=== PATIENT | male | born 2000 | race Caucasian/White ===

== ENCOUNTER 2021-07-10 17:31 | Emergency (ER) | payer SELFPAY ==
[2021-07-10 17:33] VITALS: BP 131/76; PULSE 82; RESP 20; TEMP 36.8; O2SAT 100
[2021-07-10] MEDS: TETANUS/DIPHTHERIA TOXOIDS ADSORB 0.5 ML VIAL (*BKC) IM (18:15)
--- NOTE | 2021-07-10 18:27 | ED.WOUNDLAC ---
HPI - Wound/Laceration General Chief Complaint: Wound/Laceration Stated Complaint: laceration Time Seen by Provider: 07/10/21 17:55 Source: RN notes reviewed History of Present Illness HPI narrative: Patient presents emergency department from home for laceration. 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 States he had mild venous bleeding states that he is unsure of his last tetanus shot he denies any other trauma or injury denies any numbness or tingling in the extremity Related Data Home Medications Medication Instructions Recorded Confirmed No Home Medications 07/10/21 07/10/21 Allergies Allergy/AdvReac Type Severity Reaction Status Date / Time No Known Allergies Allergy Verified 07/10/21 17:59 Review of Systems Review of Systems: Gen.: Denies fevers or chills Musculoskeletal: Denies finger or hand pain Neuro: Denies numbness, tingling, weakness Skin: See HPI Endo: Denies DM PMFSH Past Medical History Medical History (Updated 07/10/21 @ 18:29 by Wil Rivera DO) Patient denies significant medical history Social History Social History (Updated 07/10/21 @ 18:28 by Wil Rivera DO) Smoking status: Never smoker Exam Narrative: APPEARANCE: No acute distress, nontoxic, resting in bed EYES: EOMI HEENT: Normocephalic, atraumatic, OMM RESPIRATORY: No respiratory distress Clear to auscultation bilaterally with no rhonchi wheezing or rales. CARDIOVASCULAR: Regular rate and rhythm without murmurs rubs or gallops. ABDOMINAL: Soft, nontender, nondistended, no rebound or guarding MUSCULOSKELETAl: Moves all extremities. No clubbing, cyanosis or edema. Full flexion-extension of the right first IP and MCP joint, capillary refill less than 3 seconds all 5 digits, radial pulse 2+ NEURO: Awake and alert. Following commands, speech normal, no focal deficits SKIN:: Warm, dry. 1.5 cm laceration over the dorsal aspect of the right hand distal to the right MCP joint mild venous bleeding no foreign bodies no tendon involvement PSYCHIATRIC: Normal affect/mood, Course Course Emergency Course: Discussed with patient results of workup and diagnosis. Discussed need for follow-up with primary care, proper use of medication, and reasons to return to the emergency department. Patient understands and agrees to current treatment plan Vital Signs Vital signs: Vital Signs Temperature 98.2 F 07/10/21 17:33 Pulse Rate 82 07/10/21 17:33 Respiratory Rate 20 07/10/21 17:33 Blood Pressure 131/76 07/10/21 17:33 Pulse Oximetry 100 07/10/21 17:33 Temperature 98.2 F 07/10/21 17:33 Pulse Rate 82 07/10/21 17:33 Respiratory Rate 20 07/10/21 17:33 Blood Pressure 131/76 07/10/21 17:33 Pulse Oximetry 100 07/10/21 17:33 Procedures Laceration Laceration 1: ====== Skin Level ====== ====== Subcutaneous Layer ====== ====== Muscle Layer ====== ====== Tendon Layer ====== Dressing: Verbal consent was obtained prior to the procedure. The wound was cleaned with Betadine and irrigated with copious amounts of normal saline. Lidocaine 1% with epinephrine was used for anesthesia. Wound was explored is no foreign body seen. The wound was then closed with 3 4-0 nylon in simple interrupted fashion. A sterile dressing was applied following the procedure. Patient tolerated the procedure well Discharge Plan Discharge Clinical Impression: Laceration of hand, right Patient Disposition: Home, Self-Care Condition: Stable Instructions: Antibiotic Form, Laceration (ED) Additional Instructions: Return for bleeding from the wound site infection any other symptoms of concern. Your stitches need to be removed in 7-10 days and you may go to your physician or return to the emergency department for removal. Prescriptions: No Action No Home Medications RF: 0 Follow-up/Ref
== END 2021-07-10 18:40 | disposition home or self-care (01) ==
PROVIDERS: Emergency Provider Emergency Medicine
DX: S61.411A Laceration without foreign body of right hand, initial encounter (principal); Z23 Encounter for immunization; W26.8XXA Contact with other sharp object(s), not elsewhere classified, initial encounter
CPT/HCPCS: 12001; 90471; 90714; 99282

== ENCOUNTER 2025-01-31 06:14 | Emergency (ER) | payer OTHER, SELFPAY ==
--- NOTE | ~2025-01-31 | XR_ITS ---
EXAMINATION: XR chest 2V 01/31/2025 06:28 INDICATION: Bronchitis PROCEDURE: 2 view chest COMPARISON: No prior studies for comparison. FINDINGS: The lungs are clear. The cardiomediastinal silhouette is within normal limits. There are no pleural effusions. There is no pneumothorax suspected. IMPRESSION: 1: NO ACUTE CARDIOPULMONARY DISEASE. Reviewed, dictated and finalized at location B.
--- OUTSIDE RECORDS SUMMARY | 2025-01-31 06:16 | XMS_ITS | Referral Summary ---
Author Organization [facility] [place] [address] [facility] Address [address] [place] [address] Care Team Providers Care Day Guard Name Role Phone Rand Costa NP Primary Care Provider [phone] Encounters Date Type Department Care Team Description 01/26/2025 Results Follow-Up [facility] at [address] [address] Bertha Torres NP Throat culture Throat 01/24/2025 6:03 PM CDT - 01/24/2025 11:59 PM CDT Hospital Encounter [place] [id number] Pharyngitis with viral syndrome Discharge Disposition: Discharge to home or self care 01/24/2025 11:15 AM CDT Office Visit [facility] at [address] [phone] Francheska Tinsley NP Pharyngitis with viral syndrome (Primary Dx) from Last 3 Months Allergies No known active allergies Medications lidocaine viscous (XYLOCAINE) 2 % solutionIndicat ions:Pharyngiti s with viral syndrome Apply 10 mL to the mouth or throat every 6 (six) hours as needed (sore throat) May mix with 30 ml of Mylanta 100 mL 01/24/2025 Active amoxicillin-cla vulanate (AUGMENTIN) 875-125 mg per tabletIndicatio ns:Pharyngitis with viral syndrome Take 1 tablet by mouth 2 (two) times a day for 7 days 14 tablet 01/26/2025 5 Active Active Problems Problem Noted Date Diagnosed Date Obesity (BMI 30-39.9) 07/18/2024 Assessment & Plan (07/18/2024 10:14 AM REFRIGERATION ENGINE OPERATOR): Discussed the patients BMI: The BMI is above average BMI management is complete. BMI follow-up includes: Nutrition Counseling and education provided Acute mucoid otitis media of right ear Physical exam, annual 07/18/2024 Immunizations Immunization Administration Dates Next Due HPV, Quadrivalent 10/19/2014,06/18/2014 Influenza, Quadrivalent, Spl it, Preservative Free, Intramuscular 06/18/2014 Influenza, Unspecified 07/18/2024(Deferr ed: Patient Refused),07/19/2023(Deferred: Patient Refused) Meningococcal Conjugate (Menveo) 02/24/2016 Social History Tobacco Use Types Packs/Day Years Used Date Smoking Tobacco: Never Smokeless Tobacco: Never Tobacco Cessation:Counseling Given: Not Answered PHQ-2 Answer Date Recorded PHQ-2 Total Score (If total score is 3 or more points, staff should administer the PHQ-9) 0 07/18/2024 Sex and Gender Information Value Date Recorded Sex Assigned at Not on file Legal Sex Male 11:42 PM REFRIGERATION ENGINE OPERATOR Gender Identity Not on file Sexual Orientation Not on file Last Filed Vital Signs Vital Sign Reading Time Taken Comments Blood Pressure 138/88 01/24/2025 11:24 AM CDT Pulse 73 01/24/2025 11:24 AM CDT Temperature 36.6 C (97.9 F) 01/24/2025 11:24 AM CDT Respiratory Rate 18 01/24/2025 11:24 AM CDT Oxygen Saturation 98% 01/24/2025 11:24 AM CDT Inhaled Oxygen Concentration - - Weight 100.9 kg (222 lb 8 oz) 01/24/2025 11:24 A M CDT Height 180.3 cm (5' 10.98) 01/24/2025 11:24 AM CDT Body Mass Index 31.05 01/24/2025 11:24 AM CDT Plan of Treatment Not on file Procedures Procedure Name Priority Date/Time Associated Diagnosis Comments THROAT CULTURE Routine 01/24/2025 6:03 PM CDT Pharyngitis with viral syndrome POC INFLUENZA A/B, COVID-19 ANTIGEN Routine 01/24/2025 12:03 PM CDT Pharyngitis with viral syndrome POCT RAPID STREP Routine 01/24/2025 11:3 7 AM CDT Pharyngitis with viral syndrome from Last 3 Months Results * Throat culture Throat (01/24/2025 6:03 PM CDT) Report Final Report: No growth of pathogens. Comment:Testing performed by : [facility], [address] [place]., [address] Throat 01/24/2025 6:03 PM CDT 01/25/2025 2:12 AM CDT Narrative BOBBI Allen 01/26/2025 8:22 AM CDT Testing performed by [facility] Microbiology Laboratory ([phone]). Francheska Tinsley NP LAB MICROBIOLOGY - GENERAL ORDERABLES Final Result Performing Organization Address City/[facility]/ZIP Co de Phone Number BOBBI [address] Department [place] [address] * POC Influenza A/B, COVID-19 antigen (01/24/2025 12:03 PM CDT) Influenza A Ag, POC Negative Negative [facility] Influenza B Ag, POC Negative Negative [facility] COVID-19 Ag POC Presumptive Negative Presumptive Negative, Invalid [facility] Nasal 01/24/2025 12:0 3 PM CDT Francheska Tinsley NP POINT OF CARE TEST ORDERAB LES Final Result [facility] [address] [place] [address], [facility] * POCT rapid strep A (01/24/2025 11:37 AM CDT) Rapid Strep A, POC Negative Negative Swab 01/24/2025 11:3 7 AM CDT Francheska Tinsley DEBURRING AND TOOLING MACHINE OPERATOR POINT OF CARE TEST ORDERAB LES Final Result from Last 3 Months Insurance [facility] Care Teams Day Guard Relationship Specialty Start Date End Date Rand Costa NP [address] [facility] [address] [place] [address] PCP - General Internal Medicine 07/18/24
--- OUTSIDE RECORDS SUMMARY | 2025-01-31 06:16 | XMS_ITS | Clinical Summary ---
Author Organization [facility] [place] [address] [facility] Address [address] [place] [address] Care Team Providers Care Assistant Passenger Locomotive Engineer Name Role Phone Rand Costa NP Primary Care Provider [phone] Allergies No known active allergies Medications lidocaine [...] 07/18/2024 Assessment & Plan (07/18/2024 10:14 AM IMAGING SERVICES DIRECTOR): Discussed the patients BMI: The BMI is above average BMI management is complete. BMI follow-up includes: Nutrition Counseling and education provided Acute mucoid otitis media of right ear 4 Physical exam, annual 07/18/2024 Encounters Date Type Department Care Team Description 01/26/2025 Results Follow-Up [facility] Medical Group [facility] Care at [address] [phone] Bertha Torres, [facility] Throat culture Throat 01/24/2025 6:03 PM CDT - 01/24/2025 11:59 PM CDT Hospital Encounter [facility] [address] [place] [address] Pharyngitis with viral syndrome Discharge Disposition: Discharge to home or self care 01/24/2025 11:15 AM CDT Office Visit [facility]ient Care at [address] [phone] Francheska Tinsley, QA AUDITOR Pharyngitis with viral syndrome (Primary Dx) from Last 3 Months Immunizations Immunization Administration Dates Next Due HPV, Quadrivalent 10/19/2014,06/18/2014 Influenza, Quadrivalent, Spl it, Preservative Free, Intramuscular 06/18/2014 Influenza, Unspecified 07/18/2024(Deferr ed: Patient Refused),07/19/2023(Deferred: Patient Refused) Meningococcal Conjugate (Menveo) 02/24/2016 Family History Medical History Relation Name Comments Pneumonia Mother Relation Name Status Comments Father Unknown Mother Social History Tobacco Use Types Packs/Day Years Used Date Smoking Tobacco: Never Smokeless Tobacco: Never Tobacco Cessation:Counseling Given: Not Answered PHQ-2 Answer Date Recorded PHQ-2 Total Score (If total score is 3 or more points, staff should administer the PHQ-9) 0 07/18/2024 Sex and Gender Information Value Date Recorded Sex Assigned at Not on file Legal Sex Male 11:42 PM IMAGING SERVICES DIRECTOR Gender Identity Not on file Sexual Orientation Not on file Obstetrics History Last Filed Vital Signs Vital Sign Reading [...] 01/24/2025 11:24 AM CDT Plan of Treatment Health Maintenance Due Date Last Done Comments Hepatitis C Screening 1999 DTaP/Tdap/Td Vaccine (1 - Tdap) 2010 Varicella Vaccines (1 of 2 - 13+ 2-dose series) 02/05/2012 HPV Vaccines (3 - Male 3-dos e series) 01/11/2015 10/19/2014, 06/18/2014 Hepatitis B Screening 2017 Influenza Vaccine (#1) 2025 06/18/2014 Depression Screening 07/18/2025 07/18/2024 Regular Well Visit/Exam 18-64 07/18/2025 07/18/2024 Pneumococcal vaccine <65 Aged Out No longer eligible based on patient's age to complete this topic Procedures Procedure Name Priority Date/Time Associated Diagnosis [...] growth of pathogens. Comment:Testing performed by : [facility], [address] [place] [address] Throat 01/24/2025 6:03 PM CDT 01/25/2025 2:12 AM CDT Narrative BOBBI - 01/26/2025 8:22 AM CDT Testing performed by [facility] Microbiology Laboratory ([phone]). us Francheska Tinsley NP LAB MICROBIOLOGY - GENERAL ORDERABLES Final Result BOBBI [address] Department [place] [address] * POC Influenza A/B, COVID-19 antigen (01/24/2025 12:03 PM CDT) Influenza A Ag, POC Negative Negative [facility] Influenza B Ag, POC Negative Negative [facility] COVID-19 Ag POC Presumptive Negative Presumptive Negative, Invalid [facility] Nasal 01/24/2025 12:0 3 PM CDT Francheska Tinsley QA AUDITOR POINT OF CARE TEST ORDERAB LES Final Result [facility] [address] [place] [address], [facility] * POCT rapid strep A (01/24/2025 11:37 AM CDT) Rapid Strep A, POC Negative Negative Swab 01/24/2025 11:3 7 AM CDT Francheska Tinsley QA AUDITOR POINT OF CARE TEST ORDERAB LES Final Result from Last 3 Months Insurance [facility] Care Teams Assistant Passenger Locomotive Engineer Relationship Specialty Start Date End Date Rand Costa NP [address] [place] [address] PCP - General Internal Medicine 07/18/24
--- OUTSIDE RECORDS SUMMARY | 2025-01-31 06:16 | XMS_ITS | Encounter Summary ---
Author Organization [facility] Healthcare Address [address] [place] [address] Care Team Providers Care Digital Program Manager Name Role Phone Rand Costa NP Primary Care Provider [phone] Encounter Details Date Type Department Care Team (Late st Contact Info) Description 01/26/2025 Results Follow-Up [facility] Medical [facility] Convenient Care at [address] [address] Bertha Torres NP [address] [facility] [address] [place], [place] [id number] Throat culture Throat Social History Tobacco Use Types Packs/Day Years Used Date Smoking Tobacco: Never Smokeless Tobacco: Never PHQ-2 Answer Date Recorded PHQ-2 Total Score (If total score is 3 or more points, staff should administer the PHQ-9) 0 07/18/2024 Sex and Gender Information Value Date Recorded Sex Assigned at Not on file Legal Sex Male 11:42 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
[2025-01-31 06:17] VITALS: BP 135/82; PULSE 96; RESP 20; TEMP 36.5; O2SAT 100
--- NOTE | 2025-01-31 06:20 | ED.URI ---
HPI - URI/Sore Throat General Chief Complaint: Upper Respiratory Infection Stated Complaint: Coughing up red stuff in phlegm Time Seen by Provider: 01/31/25 06:19 History of Present Illness HPI Narrative: 24-year-old male presenting to the emergency department for cough for approximately 10 days associated with red streaking in his phlegm this morning. He states he went to urgent care several weeks ago and was given a course of antibiotics and sent home with suspicion for upper respiratory infection versus bronchitis. He states that he has had intermittent cough for last 10 days and does endorse vaping. No history of COPD, childhood history of asthma but no chronic inhaler use. No chest pain or present shortness of breath. Otherwise well-appearing ambulatory in triage. No trauma or injury. No recent hospital visits or hospitalizations. Related Data Allergies Allergy/AdvReac Type Severity Reaction Status Date / Time No Known Allergies Allergy Verified 01/31/25 06:20 Review of Systems Review of Systems: As reviewed above in HPI [facility] Past Medical History Medical History Patient denies significant medical history Social History Social History Smoking status: Never smoker Exam Narrative: GENERAL: [Well-appearing, well-nourished, and in no acute distress.] HEAD: [Normocephalic, atraumatic.] EYES: [PERRLA and EOMI.] ENT: Nares clear, no rhinorrhea or epistaxis. Mucous membranes moist. NECK: Supple. CHEST: [Clear to auscultation. No respiratory distress.] HEART: [Regular rate and rhythm]. No murmur heard. [Normal peripheral pulses.] ABDOMEN: [Soft, nondistended], [nontender], [No rigidity or guarding] EXTREMITIES: Normal range of motion. [No edema.] SKIN: Warm, dry, no rash. NEURO: [No focal deficits]. Alert and oriented [x3.] PSYCH: [Normal mood and affect.] Course Vital Signs Vital signs: Vital Signs Temperature 36.5 C 01/31/25 06:17 Pulse Rate 96 01/31/25 06:17 Respiratory Rate 20 01/31/25 06:17 Blood Pressure 135/82 01/31/25 06:17 Pulse Oximetry 100 01/31/25 06:17 Oxygen Delivery Room Air 01/31/25 06:17 Temperature 36.5 C 01/31/25 06:31 Pulse Rate 62 01/31/25 06:31 Respiratory Rate 20 01/31/25 06:31 Blood Pressure 135/82 01/31/25 06:31 Pulse Oximetry 96 01/31/25 06:31 Oxygen Delivery Room Air 01/31/25 06:22 MDM - URI/Sore Throat MDM Narrative Medical decision making narrative: 24-year-old male presenting to the emergency department for cough for approximately 10 days associated with red streaking in his phlegm this morning. He states he went to urgent care several weeks ago and was given a course of antibiotics and sent home with suspicion for upper respiratory infection versus bronchitis. He states that he has had intermittent cough for last 10 days and does endorse vaping. No history of COPD, childhood history of asthma but no chronic inhaler use. No chest pain or present shortness of breath. Otherwise well-appearing ambulatory in triage. No trauma or injury. No recent hospital visits or hospitalizations. Patient is very well-appearing not any acute distress and has normal vital signs and clear breath sounds throughout. Given his acute cough for last 10 days likely he has a component of some bronchitis or upper respiratory infection leading to his minor reported hemoptysis. He is hemodynamically stable, no signs of ongoing hemoptysis at this time and he is not coughing throughout the examination or with deep breathing. Will obtain multiple view x-rays of the chest and given duration of patient's symptoms he would likely benefit from possibility of steroids are albuterol. Has completed a course of antibiotics so unless there is a large obvious pneumonia no indication for additional antibiotics at this time. X-ray was independently reviewed and I do not see any consolidations or effusions, no pneumothorax. Patient's symptoms consistent with bronchitis and he will be treated with a course of steroids and cough suppressant medications. Given a 1st dose here and sent home with prescriptions. Encouraged to follow-up with his primary care provider given return precautions prior to discharge. Medical Records Attestation: I reviewed the patient's medical records. Imaging Data Attestation: I personally reviewed and interpreted this imaging study as follows: My impression: No evidence of any pneumonia, consolidations, pneumothorax or pleural effusions. Discharge Plan Discharge Clinical Impression: Bronchitis, Upper respiratory infection Patient Disposition: Home Condition: Stable Instructions: Antibiotic Form, Acute Bronchitis (ED) Additional Instructions: Chest x-ray does not show any pneumonia in your symptoms are consistent with acute bronchitis which is inflammation of the large upper airways. We will treat this with a combination of high-dose steroids for 5 days and albuterol as needed. We will also prescribe cough suppressant medications including Tessalon Perles. Follow-up with your doctor in a week and return for any emergent concerns or worsening symptoms. Patient Language: Lithuanian Prescriptions: New benzonatate 200 mg capsule 200 mg PO TID PRN (Reason: cough) Qty: 20 0RF albuterol sulfate 90 mcg/actuation HFA aerosol inhaler 2 puff inhalation QID PRN (Reason: shortness of breath or wheezing) Qty: 8.5 0RF prednisone 50 mg tablet 50 mg PO DAILY 4 Days Qty: 4 0RF Follow-up/Referrals: PHYSICIAN,CLINICAL LAW PROFESSOR [Primary Care Provider] - Time of Disposition: 06:54
[2025-01-31 06:22] VITALS: O2SAT 100
[2025-01-31 06:31] VITALS: BP 135/82; PULSE 62; RESP 20; TEMP 36.5; O2SAT 96
--- OUTSIDE RECORDS SUMMARY | 2025-01-31 06:48 | XMS_ITS | Referral Summary ---
Author Organization [facility] [place] [address] [facility] Address [address] [place] [address] Care Team Providers Care Machine Load Clerk Name Role Phone Rand Costa NP Primary Care Provider [phone] Encounters Date Type Department Care Team Description 01/26/2025 Results Follow-Up [facility] Convenient Care at [address] [phone] Bertha Torres NP Throat culture Throat 01/24/2025 6:03 PM CDT - 01/24/2025 11:59 PM CDT Hospital Encounter [place] [id number] Pharyngitis with viral syndrome Discharge Disposition: Discharge to home or self care 01/24/2025 11:15 AM CDT Office Visit [facility] Care at [address] [phone] Francheska Tinsley NP Pharyngitis with viral syndrome [...] 07/18/2024 Assessment & Plan (07/18/2024 10:14 AM GROUND SUPPORT EQUIPMENT MECHANIC): Discussed the patients BMI: The BMI is [...] on file Legal Sex Male 11:42 PM GROUND SUPPORT EQUIPMENT MECHANIC Gender Identity Not on file Sexual Orientation [...] growth of pathogens. Comment:Testing performed by : [facility], [address] [place]., [address] Throat 01/24/2025 6:03 PM CDT 01/25/2025 2:12 AM CDT Narrative BOBBI Allen 01/26/2025 8:22 AM CDT Testing performed by [facility] Microbiology Laboratory ([phone]). Francheska Tinsley NP LAB MICROBIOLOGY - GENERAL ORDERABLES Final Result Performing Organization Address City/[facility]/ZIP Co de Phone Number BOBBI [address] Department [place] [address] * POC Influenza A/B, COVID-19 antigen (01/24/2025 12:03 PM CDT) Influenza A Ag, POC Negative Negative [facility] Influenza B Ag, POC Negative Negative [facility] COVID-19 Ag POC Presumptive Negative Presumptive Negative, Invalid [facility] Nasal 01/24/2025 12:0 3 PM CDT Francheska Tinsley NP POINT OF CARE TEST ORDERAB LES Final Result [facility] [address] [place] [address], [facility] * POCT rapid strep A (01/24/2025 11:37 AM CDT) Rapid Strep A, POC Negative Negative Swab 01/24/2025 11:3 7 AM CDT Francheska Tinsley CORE FITTER POINT OF CARE TEST ORDERAB LES Final Result from Last 3 Months Insurance [facility] Care Teams Machine Load Clerk Relationship Specialty Start Date End Date Rand Costa NP [address] [facility] [address] [place] [address] PCP - General Internal Medicine 07/18/24
--- OUTSIDE RECORDS SUMMARY | 2025-01-31 06:48 | XMS_ITS | Clinical Summary ---
Author Organization [facility] [address] [facility] Address [address] [place] [address] Care Team Providers Care Humidifier Attendant Name Role Phone Rand Costa NP Primary Care Provider [phone] Allergies No known active allergies Medications lidocaine [...] 07/18/2024 Assessment & Plan (07/18/2024 10:14 AM COLD MILL INSPECTOR): Discussed the patients BMI: The BMI is above average BMI management is complete. BMI follow-up includes: Nutrition Counseling and education provided Acute mucoid otitis media of right ear 4 Physical exam, annual 07/18/2024 Encounters Date Type Department Care Team Description 01/26/2025 Results Follow-Up [facility] Care at [address] [address] Bertha Torres, UCHE Throat culture Throat 01/24/2025 6:03 PM CDT - 01/24/2025 11:59 PM CDT Hospital Encounter [facility] [address] [place] [address] Pharyngitis with viral syndrome Discharge Disposition: Discharge to home or self care 01/24/2025 11:15 AM CDT Office Visit [facility] at [address] [address] Francheska Tinsley, NEUROPATHOLOGIST Pharyngitis with viral syndrome (Primary Dx) from [...] on file Legal Sex Male 11:42 PM COLD MILL INSPECTOR Gender Identity Not on file Sexual Orientation [...] growth of pathogens. Comment:Testing performed by : [facility], [address] [place] [place]., [address] Throat 01/24/2025 6:03 PM CDT 01/25/2025 2:12 AM CDT Narrative [facility] - 01/26/2025 8:22 AM CDT Testing performed by [facility] Microbiology Laboratory ([phone]). us Francheska Tinsley NP LAB MICROBIOLOGY - GENERAL ORDERABLES Final Result [facility] [address] Department [place] [address] * POC Influenza A/B, COVID-19 antigen (01/24/2025 12:03 PM CDT) Influenza A Ag, POC Negative Negative [facility] EDW Influenza B Ag, POC Negative Negative [facility] COVID-19 Ag POC Presumptive Negative Presumptive Negative, Invalid [facility] Nasal 01/24/2025 12:0 3 PM CDT Francheska Tinsley NEUROPATHOLOGIST POINT OF CARE TEST ORDERAB LES Final Result [facility] EDW [address] [place] [address], [facility] * POCT rapid strep A (01/24/2025 11:37 AM CDT) Rapid Strep A, POC Negative Negative Swab 01/24/2025 11:3 7 AM CDT Francheska Tinsley NEUROPATHOLOGIST POINT OF CARE TEST ORDERAB LES Final Result from Last 3 Months Insurance [facility] Care Teams Humidifier Attendant Relationship Specialty Start Date End Date Rand Costa NP [address] [place] [address] PCP - General Internal Medicine 07/18/24
--- OUTSIDE RECORDS SUMMARY | 2025-01-31 06:48 | XMS_ITS | Encounter Summary ---
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 Role Phone Rand Costa NP Primary Care Provider [phone] Encounter Details Date Type Department Care Team (Late st Contact Info) Description 01/26/2025 Results Follow-Up [facility] Con[facility]ient Care at [address] [address] Bertha Torres NP [address] [facility] [address] [place], [place] [id number] Throat culture Throat Social History Tobacco Use Types Packs/Day Years Used Date Smoking Tobacco: Never Smokeless Tobacco: Never PHQ-2 Answer Date Recorded PHQ-2 Total Score (If total score is 3 or more points, staff should administer the PHQ-9) 0 07/18/2024 Sex and Gender Information Value Date Recorded Sex Assigned at Not on file 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
[2025-01-31] MEDS: BENZONATATE 100 MG CAPSULE PO (07:02)
== END 2025-01-31 07:00 | disposition home or self-care (01) ==
PROVIDERS: Emergency Provider Student in an Organized Health Care Education/Training Program
DX: J40 Bronchitis, not specified as acute or chronic (principal); J06.9 Acute upper respiratory infection, unspecified
CPT/HCPCS: 71046; 99283; A9270; J7512